=== PATIENT | female | born 1975 | race Caucasian/White ===

== ENCOUNTER 2016-12-25 18:09 | Emergency (ER) | payer OTHER ==
[~2016-12-25] VITALS: Ht 172.7 cm; Wt 70.6 kg
[~2016-12-25 18:09] MED LIST: PEN-VEE K,VEET500 MG PO
[2016-12-25 19:36] LABS: EOSINOPHIL COUNT 0.2 K/uL (0-0.3); HEMATOCRIT 38.6 % (36.0-46.0); IMMATURE GRANULOCYTE (%) 0.4 % (0.0-0.7); INSTRUMENT ABS NEUTROPHIL CT 4.5 K/uL; LYMPHOCYTE COUNT 1.8 K/uL (1.0-2.8); MCH 28.4 PG (29.0-34.0); MCHC 32.6 G/DL (30.0-36.0); MCV 87.1 FL (83-99); MEAN PLAT.VOLUME 10.1 uM^3 (9.5-12.4); MONOCYTE (%) 10.6 % (3-12); MONOCYTE COUNT 0.8 K/uL (0-0.8); NEUTROPHIL (%) 61.8 % (45-76); NEUTROPHIL COUNT 4.5 K/uL (1.8-6.4); PLATELET COUNT 225 K/uL (156-360); RBC DIS.WIDTH-CV 12.8 % (11.8-14.6); RED BLOOD COUNT 4.43 M/uL (3.80-5.20); WHITE BLOOD COUNT 7.3 K/uL (4.1-10.2)
[2016-12-25 19:48] LABS: CHLORIDE 106 mEq/L (99-109); POTASSIUM 4.3 mEq/L (3.7-5.4); SODIUM 139 mEq/L (136-147)
[2016-12-25 19:50] LABS: GLUCOSE 103 mg/dL (70-99)
[2016-12-25 19:51] LABS: ANION GAP 8 MEQ/L (2-14)
[2016-12-25 19:52] LABS: TOTAL BILIRUBIN 0.6 mg/dL (0.0-1.0)
[2016-12-25 19:53] LABS: ALKALINE PHOSPHATASE 71 IU/L (3-129)
[2016-12-25 19:54] LABS: GFR ESTIMATE (CALCULATED) > 59 mL/min/
[2016-12-25 19:55] LABS: UREA NITROGEN (BUN) 12 mg/dL (9-23)
[2016-12-25 19:57] LABS: LIPASE 17 U/L (1.0-51.0)
[2016-12-25 20:44] VITALS: BP 167/94
== END 2016-12-25 20:52 | disposition home or self-care (01) ==
LOC: EME 18:09
PROVIDERS: Physician Assistant
DX: R42 Dizziness and giddiness (principal); R10.11 Right upper quadrant pain; K21.9 Gastro-esophageal reflux disease without esophagitis; F41.9 Anxiety disorder, unspecified; Z87.891 Personal history of nicotine dependence
CPT/HCPCS: 76705; 80053; 83690; 85025; 99281; 99283